=== PATIENT | male | born 1940 | race Caucasian/White ===

== ENCOUNTER 2019-01-03 12:31 | Outpatient (CLI) | payer MEDICARE, BC | END 2019-01-03 12:32 | disposition critical access hospital (66) | LOC: EMS 12:31 | PROVIDERS: ATTEND Surgery | DX: R10.9 Unspecified abdominal pain (principal); R11.2 Nausea with vomiting, unspecified ==

== ENCOUNTER 2019-01-03 12:52 | Emergency (ER) | payer MEDICARE, BC ==
[2019-01-03] MEDS ORDERED: ONDANSETRON 4 MG/2 ML VIAL IVP STA (13:08)
[2019-01-03] MEDS ORDERED: SODIUM CHLORIDE 0.9% 1,000 ML IV ONE (13:09)
--- NOTE | 2019-01-03 13:18 | ED Physician Documentation ---
PD HPI ABD PAIN - Stated complaint Stated Complaint: ABD PX - Chief complaint Chief Complaint: Abd Pain - History obtained from History obtained from: Patient, Family () - History of Present Illness Timing - onset: How many hours ago (3), Today Timing - details: Still present Quality: Pain Location: LLQ Associated symptoms: Nausea, Vomiting, Diarrhea Similar symptoms before: Has not had sx before - Additional information Additional information: The patient is a 78-year-old male who arrives via ambulance complaining of vomiting and lower abdominal pain. His symptoms started about 3 hours prior to arrival, and he has vomited about 10 times since onset. He also has had loose stool. He denies fever, dysuria, chest pain, or cough. He reports mild shortness of breath. He denies history of similar symptoms in the past. His past history is significant for prostate cancer for which he is status post TURP. He is also status post CABG, and status post lumbar surgery. He is visiting here from [place]. Review of Systems Constitutional: denies: Fever Ears: denies: Tinnitus/ringing Nose: denies: Congestion Throat: denies: Sore throat Cardiac: denies: Chest pain / pressure Respiratory: denies: Cough GI: reports: Abdominal Pain, Nausea, Vomiting, Diarrhea : denies: Dysuria Skin: denies: Rash Musculoskeletal: denies: Back pain, Extremity pain Neurologic: denies: Focal weakness, Numbness, Headache PD PAST MEDICAL HISTORY - Past Medical History Cardiovascular: Coronary artery disease : Other (Prostate CA) - Past Surgical History Cardiovascular: CABG Other past surgical history: Lumbar surgery, TURP - Present Medications Home Medications: Ambulatory Orders Medication Instructions Recorded Confirmed Aspirin 325 mg PO DAILY 01/03/19 01/03/19 Carvedilol [Coreg] 3.125 mg PO BID 01/03/19 01/03/19 Divalproex [Depakote Dr] 250 mg PO TID 01/03/19 01/03/19 Donepezil [Aricept] 5 mg PO QPM 01/03/19 01/03/19 Omeprazole 20 mg PO DAILY 01/03/19 01/03/19 Promethazine [Phenergan] 25 mg PO Q6H PRN #10 tab 01/03/19 QUEtiapine [SEROquel] 50 mg PO QPM 01/03/19 01/03/19 Simvastatin 40 mg PO QPM 01/03/19 01/03/19 - Allergies Allergies/Adverse Reactions: Allergies Allergy/AdvReac Type Severity Reaction Status Date / Time Penicillins Allergy Hives Verified 01/03/19 13:08 - Social History Additional Social History: Visiting here from [place]. PD ED PE NORMAL - Vitals Vital signs reviewed: Yes (normal) - General General: Alert and oriented X 3, Well developed/nourished, Other (Holding emesis bag.) - HEENT HEENT: Atraumatic, Moist mucous membranes - Neck Neck: Supple, no meningeal sign, No adenopathy, No JVD - Cardiac Cardiac: RRR - Respiratory Respiratory: No respiratory distress, Clear bilaterally - Abdomen Abdomen: Soft, Other (Mild tenderness to palpation in LLQ, without rebound or guarding.) - Back Back: No CVA TTP - Derm Derm: No rash - Extremities Extremities: No edema, No calf tenderness / cord - Neuro Neuro: Alert and oriented X 3, No motor deficit, Normal speech, Other (Hearing impaired.) Results - Vitals Vitals: Vital Signs - 24 hr 01/03/19 01/03/19 01/03/19 12:54 13:17 15:14 Temperature 36.5 C Heart Rate 53 L 56 L 59 L Respiratory 15 10 L 14 Rate Blood Pressure 129/70 119/64 92/59 L O2 Saturation 93 96 96 Oxygen O2 Source Room air - Labs Labs: Laboratory Tests 01/03/19 01/03/19 01/03/19 13:21 13:21 13:21 WBC 10.5 RBC 4.63 L Hgb 14.8 Hct 43.4 MCV 93.6 MCH 32.0 H MCHC 34.2 RDW 13.5 Plt Count 122 L MPV 9.3 Neut # (Auto) 8.1 H Lymph # (Auto) 1.4 L [place] # (Auto) 0.8 Eos # (Auto) 0.2 Baso # (Auto) 0.1 Absolute Nucleated RBC 0.00 Nucleated RBC % 0.0 Sodium 138 Potassium 5.0 Chloride 99 L Carbon Dioxide 28 Anion Gap 11.0 BUN 19 Creatinine 0.8 Estimated GFR (MDRD) 93 Glucose 141 H Lactic Acid Calcium 8.6 Total Bilirubin 1.0 AST 42 ALT 31 Alkaline Phosphatase 38 L Troponin I < 0.04 Total Protein 6.6 L Albumin 3.1 L Globulin 3.5 Albumin/Globulin Ratio 0.9 L Lipase 26 Urine Color Urine Clarity Urine pH Ur Specific [place] Urine Protein Urine Glucose (UA) Urine Ketones Urine Occult Blood Urine Nitrite Urine Bilirubin Urine Urobilinogen Ur Leukocyte Esterase Ur Microscopic Review Urine Culture Comments 01/03/19 01/03/19 13:21 13:42 WBC RBC Hgb Hct MCV MCH MCHC RDW Plt Count MPV Neut # (Auto) Lymph # (Auto) [place] # (Auto) Eos # (Auto) Baso # (Auto) Absolute Nucleated RBC Nucleated RBC % Sodium Potassium Chloride Carbon Dioxide Anion Gap BUN Creatinine Estimated GFR (MDRD) Glucose Lactic Acid 1.1 Calcium Total Bilirubin AST ALT Alkaline Phosphatase Troponin I Total Protein Albumin Globulin Albumin/Globulin Ratio Lipase Urine Color YELLOW Urine Clarity CLEAR Urine pH 5.0 Ur Specific [place] >=1.030 H Urine Protein NEGATIVE Urine Glucose (UA) NEGATIVE Urine Ketones TRACE Urine Occult Blood NEGATIVE Urine Nitrite NEGATIVE Urine Bilirubin NEGATIVE Urine Urobilinogen 0.2 (NORMAL) Ur Leukocyte Esterase NEGATIVE Ur Microscopic Review NOT INDICATED Urine Culture Comments NOT INDICATED - Rads (name of study) CT abd/pelvis Radiology: Prelim report reviewed, EMP read contemporaneously, See rad report (Diverticulosis, without diverticulitis or other acute inflammatory process. Cholelithiasis. Hiatal hernia.) PD MEDICAL DECISION MAKING - ED course Complexity details: reviewed results, re-evaluated patient, considered differential, d/w patient, d/w family ED course: The patient's presentation with vomiting and diarrhea is most likely due to food intolerance or possible food poisoning. His symptoms had started quite suddenly after eating a variety of foods at 2 different breakfasts this morning. His abdominal examination is benign. CT scan of his abdomen and pelvis reveals no acute abnormality. CBC, chemistry panel, and urinalysis are unremarkable. Treatment in the emergency department included administration of normal saline 1 L IV and Zofran 4 mg IV. His symptoms completely resolved after the above treatment. He demonstrated ability to drink fluids without recurrent symptoms. He is being discharged with prescription for Phenergan. I discussed with him and his family the results of his workup, expected course of illness, as well as potentially worrisome signs or symptoms that should prompt reevaluation in the emergency department. Departure - Departure Disposition: 01 Home, Self Care Clinical Impression: Dehydration Vomiting Qualifiers: Vomiting type: unspecified Vomiting Intractability: non-intractable Nausea presence: with nausea Qualified Code(s): R11.2 - Nausea with vomiting, unspecified Diarrhea Qualifiers: Diarrhea type: unspecified type Qualified Code(s): R19.7 - Diarrhea, unspecified Condition: Stable Instructions: ED Vomiting Diarrhea Nonspecific Ad Prescriptions: Promethazine [Phenergan] 25 mg PO Q6H PRN #10 tab PRN Reason: Nausea / Vomiting Comments: Drink plenty of fluids. You can use Phenergan as prescribed if needed for nausea. Follow-up with your primary physician upon return to [place]. Return to the emergency department if increasing abdominal pain, persistent vomiting, recurrent dehydration, or otherwise worsening symptoms. Discharge Date/Time: 01/03/19 15:49
[2019-01-03 13:26] LABS: BASOPHILS # (AUTO) 0.1 10^3/uL (0.0-0.1); BASOPHILS % (AUTO) 0.7 %; EOSINOPHILS # (AUTO) 0.2 10^3/uL (0.0-0.7); EOSINOPHILS % (AUTO) 1.5 %; HGB - HEMOGLOBIN 14.8 g/dL (14.0-18.0); LYMPHOCYTES # (AUTO) 1.4 10^3/uL (1.5-3.5); LYMPHOCYTES % (AUTO) 12.9 %; MEAN CORPUSCULAR HGB CONC 34.2 g/dL (32.0-36.0); MEAN CORPUSCULAR VOLUME 93.6 fL (80.0-94.0); MEAN PLATELET VOLUME 9.3 fL (7.4-11.4); MONOCYTES # (AUTO) 0.8 10^3/uL (0.0-1.0); MONOCYTES % (AUTO) 7.3 %; NEUTROPHILS # (AUTO) 8.1 10^3/uL (1.5-6.6); NEUTROPHILS % (AUTO) 77.6 %; PLT - PLATELET COUNT 122 10^3/uL (130-450); RED BLOOD COUNT 4.63 10^6/uL (4.70-6.10); RED CELL DISTRIBUTION WIDTH 13.5 % (12.0-15.0); WHITE BLOOD COUNT 10.5 x10^3/uL (4.8-10.8)
[2019-01-03] MEDS ORDERED: IOVERSOL 320 100 ML VIAL IVP ONE ×2 (13:27→17:49)
[2019-01-03 13:42] LABS: ALBUMIN 3.1 g/dL (3.2-5.5); ALBUMIN/GLOBULIN RATIO 0.9 (1.0-2.2); CALCIUM 8.6 mg/dL (8.5-10.3); CREATININE 0.8 mg/dL (0.6-1.2); TOTAL PROTEIN 6.6 g/dL (6.7-8.2)
[2019-01-03 13:53] LABS: BILIRUBIN,URINE NEGATIVE (NEGATIVE); GLUCOSE, URINE (UA) NEGATIVE (NEGATIVE); KETONES,URINE (UA) TRACE mg/dL (NEGATIVE); LEUKOCYTE ESTERASE, URINE NEGATIVE (NEGATIVE); NITRITE,URINE NEGATIVE (NEGATIVE); OCCULT BLOOD,URINE NEGATIVE (NEGATIVE); PROTEIN,URINE NEGATIVE (NEGATIVE); UROBILINOGEN,URINE 0.2 (NORMAL) E.U./dL (NORMAL)
[2019-01-03 13:55] LABS: CLARITY,URINE CLEAR (CLEAR)
--- NOTE | 2019-01-03 14:40 | CT Report ---
Reason: LLQ abd pain, with vomiting Procedure Date: 01/03/2019 Accession Number: [id number] / [id number] Procedure: CT - Abdomen/Pelvis W CPT Code: FULL RESULT: EXAM: CT ABDOMEN AND PELVIS EXAM DATE: 01/03/2019 02:03 PM. CLINICAL HISTORY: Left lower quadrant abdominal pain, with vomiting. COMPARISONS: None. TECHNIQUE: Routine helical CT imaging was performed through the abdomen and pelvis. IV contrast: 100 mL [id number]. Enteric contrast: No. Reconstructions: Coronal and sagittal. In accordance with CT protocol optimization, one or more of the following dose reduction techniques were utilized for this exam: automated exposure control, adjustment of mA and/or KV based on patient size, or use of iterative reconstructive technique. FINDINGS: Lung Bases: Small hiatal hernia. Liver: Normal. No masses. Gallbladder/Bile Ducts: 10 mm stone within the neck of the gallbladder. No evidence of cholecystitis or bile duct obstruction. Spleen: Normal. Pancreas: Normal. Adrenal Glands: Normal. Kidneys: Normal. No masses or hydronephrosis. No urinary tract stones seen noting clip artifact obscuring the distal ureters and vesicoureteral junctions. Peritoneal Cavity/Bowel: Diverticulosis without diverticulitis. No bowel obstruction. No free air or fluid collections. No evidence of appendicitis. Pelvic Organs: Pelvic clip artifact related to prior prostate gland surgery. No lymphadenopathy. No fluid collections. The urinary bladder is unremarkable. Vasculature: Atherosclerotic aortoiliac disease. No evidence of aneurysm. Bones: No significant abnormality. Other: None. IMPRESSION: 1. Diverticulosis without diverticulitis or other acute inflammatory process. 2. Cholelithiasis. 3. Hiatal hernia. [facility]
[2019-01-03 15:16] VITALS: BP 92/59
== END 2019-01-03 15:49 | disposition home or self-care (01) ==
LOC: ED 12:52
DX: E86.0 Dehydration (principal); R11.2 Nausea with vomiting, unspecified; R19.7 Diarrhea, unspecified
CPT/HCPCS: 36415; 74177; 80053; 81003; 83605; 83690; 84484; 85025; 96361; 96374; 99283; 99284; Q9967; 81001; 87086